=== PATIENT | male | born 1955 | race Hispanic/Latino ===

== ENCOUNTER 2018-01-02 09:59 | Emergency (ER) | payer OTHER ==
[2018-01-02 10:04] VITALS: BMI 31.1
--- NOTE | 2018-01-02 10:29 | ED PDOC ---
Lower Extremity Pain/Injury Time Seen by Provider: 01/02/18 10:10 Chief Complaint (Nursing): Lower Extremity Problem/Injury Chief Complaint (Provider): Left leg swelling History Per: Patient History/Exam Limitations: no limitations Onset/Duration Of Symptoms: Days, Persistent Current Symptoms Are (Timing): Still Present Additional History Per: Patient Additional Complaint(s): 62yo male, history of hypertension, pre-diabetes, comes to ER reporting swelling to his left lower extremity, x 2 weeks. 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 Patient reports some tingling in his left lower extremity but denies any weakness or numbness. He also denies any trauma/injury to the left leg, chest pain, or shortness of breath. Patient denies any blood clots in the past and denies any family history of blood clots. He has no additional complaints. PMD: None Against Medical Advice - AMA Patient Left Against Medical Advice: The patient declines admission to the hospital and wishes to leave the Emergency Department. This action is against my medical advice. This decision was made with informed refusal. The patient was told that admission to the hospital is necessary. Explanation of the reasons why were discussed. The risks of leaving were explained to the patient and include, but are not limited to, worsening of known or currently unknown conditions, permanent disability and from undiagnosed or untreated conditions. The patient has the capacity to make this informed decision and understands my explanation of the current medical problem and risks of leaving. The patient voluntarily accepts these risks and signed an AMA form documenting our conversation. The patient was given the opportunity to ask questions and reconsider. The patient was encouraged to return to the Emergency Department at any time for further care. Past Medical History Reviewed: Historical Data, Nursing Documentation, Vital Signs Vital Signs: Last Vital Signs Temp 98.4 F 01/02/18 10:03 Pulse 80 01/02/18 10:03 Resp 16 01/02/18 10:03 BP 169/92 H 01/02/18 10:03 Pulse Ox 97 01/02/18 10:03 - Medical History PMH: HTN - Surgical History Surgical History: No Surg Hx - Family History Family History: States: No Known Family Hx - Social History Current smoker - smoking cessation education provided: No Alcohol: None Drugs: Cannabis - Home Medications Home Medications: Ambulatory Orders Medication Instructions Recorded RX: No Known Home Med 01/02/18 - Allergies Allergies/Adverse Reactions: Allergies Allergy/AdvReac Type Severity Reaction Status Date / Time No Known Allergies Allergy Verified 01/02/18 10:10 Review of Systems ROS Statement: Except As Marked, All Systems Reviewed And Found Negative Constitutional: Negative for: Fever, Chills Cardiovascular: Negative for: Chest Pain Respiratory: Negative for: Shortness of Breath Musculoskeletal: Positive for: Other (left lower leg swelling). Negative for: Leg Pain Neurological: Negative for: Weakness, Numbness Physical Exam - Reviewed Nursing Documentation Reviewed: Yes Vital Signs Reviewed: Yes - Physical Exam Appears: Positive for: Non-toxic, No Acute Distress Head Exam: Positive for: ATRAUMATIC, NORMAL INSPECTION, NORMOCEPHALIC Skin: Positive for: Normal Color, Warm Eye Exam: Positive for: Normal appearance Neck: Positive for: Supple Cardiovascular/Chest: Positive for: Regular Rate, Rhythm Respiratory: Positive for: Normal Breath Sounds Pulses-Dorsalis Pedis (L): 2+ Pulses-Post. Tibialis (L): 2+ Extremity: Positive for: Normal ROM (FROM left lower extremity), Pedal Edema (non-pitting edema noted to left lower extremity; mild venous stasis changes noted), Capillary Refill (< 2 seconds), Other (venous dilation noted to left lower extremity; no warmth, or erythema noted. Calf is soft.). Negative for: Calf Tenderness, Deformity Neurologic/Psych: Positive for: Alert, Oriented. Negative for: Motor/Sensory Deficits - Laboratory Results Result Diagrams: 01/02/18 10:30 01/02/18 10:30 - ECG O2 Sat by Pulse Oximetry: 97 (RA) Pulse Ox Interpretation: Normal Medical Decision Making Medical Decision Making: Impression: Left lower leg swelling Differential: R/o DVT Plan: * Labs * US Doppler LLE Time: 12:06 Extremity US FINDINGS: 2-D, color and duplex Doppler analysis of the lower extremity venous circulation using routine protocol from the femoral veins through the popliteal veins. Venous compressibility: Normal. Flow and augmentation patterns: Normal. Visualized veins upper third of calf demonstrate the thrombus and noncompressibility consistent with DVT. The distal aspect of the posterior tibial vein exhibits noncompressible thrombus on as well Mcarthur cyst: None. IMPRESSION: There is evidence of noncompressive occlusive DVT within the mid posterior tibial vein.. See above discussion for additional details Time: 13:25 -discussed results of DVT study with patient, recommend admission to hospital for treatment as well as training for DVT injection, appropriate follow up arrangements discussed since patient has no PMD and no insurance, patient r efuses to stay and wants to leave AMA but will return within 24 hours for possible admission Scribe Attestation: Documented by Cassidy Crowell, acting as a scribe for Belgica Sierra MD Provider Scribe Attestation: All medical record entries made by the Scribe were at my direction and personally dictated by me. I have reviewed the chart and agree that the record accurately reflects my personal performance of the history, physical exam, medical decision making, and the department course for this patient. I have also personally directed, reviewed, and agree with the discharge instructions and disposition. Disposition - Clinical Impression Clinical Impression: Left leg DVT, Left against medical advice - Disposition Referrals: [facility] [Outside] [facility] [Outside] Disposition Time: 14:00 Condition: GOOD Additional Instructions: Return with in 24 hours for further treatment and admission. GABI PRUETT, thank you for letting us take care of you today. Your provider was Belgica Sierra MD and you were treated for LEFT CALF PAIN & SWELLING LT ANKLE. The emergency medical care you received today was directed at your acute symptoms. If you were prescribed any medication, please fill it and take as directed. It may take several days for your symptoms to resolve. Return to the Emergency Department if your symptoms worsen, do not improve, or if you have any other problems. Please contact your doctor or call one of the physicians/clinics you have been referred to that are listed on the Patient Visit Information form that is included in your discharge packet. Bring any paperwork you were given at discharge with you along with any medications you are taking to your follow up visit. Our treatment cannot replace ongoing medical care by a primary care provider outside of the emergency department. [facility]. If you had an X-Ray or CT scan: A Radiologist will review the ED reading if any change in treatment is needed we will contact you. If you had a blood, urine, or wound culture: It will take several days for the results, if any change in treatment is needed we will contact you. If you had an STI test: It will take 48 hours for the results. Please call after 1 week if you have not heard back. Instructions: Deep Vein Thrombosis (Blood Clots in the Legs), Leaving Against Medical Advice Forms: [facility] (Senegalese)
[2018-01-02 10:47] LABS: BASO % 1.1 % (0.0-2.0); EOS # 0.1 K/uL (0.0-0.7); EOS % 2.9 % (0.0-4.0); HEMOGLOBIN 14.1 g/dL (12.0-18.0); LYMPH # 1.2 K/uL (1.0-4.3); LYMPH % 28.6 % (20.0-40.0); MEAN CELL VOLUME 85.2 fl (80.0-94.0); MEAN CORPUSCULAR HEMOGLOBIN 28.3 pg (27.0-31.0); MEAN CORPUSCULAR HGB CONC 33.2 g/dL (33.0-37.0); MEAN PLATELET VOLUME 9.3 fl (7.2-11.7); MONO # 0.4 K/uL (0.0-0.8); NEUT # 2.4 K/uL (1.8-7.0); NEUT % 57.4 % (50.0-75.0); RBC 5.01 Mil/uL (4.40-5.90); RED CELL DISTRIBUTION WIDTH 13.5 % (11.5-14.5); WHITE BLOOD COUNT 4.1 K/uL (4.8-10.8)
[2018-01-02 11:12] LABS: BLOOD UREA NITROGEN 18 mg/dl (9-20); CALCIUM 8.9 mg/dL (8.4-10.2); GFR NON-AFRICAN AMERICAN 56
[2018-01-02 11:13] LABS: PROTHROMBIN TIME 11.4 Seconds (9.8-13.1)
[2018-01-02 11:16] LABS: PARTIAL THROMBOPLASTIN TIME 29.2 Seconds (25.6-37.1)
--- NOTE | 2018-01-02 12:10 | US ---
Date of service: 01/02/2018 HISTORY: lower left leg swelling. PRIORS: None. FINDINGS: 2-D, color and duplex Doppler analysis of the lower extremity venous circulation using routine protocol from the femoral veins through the popliteal veins. Venous compressibility: Normal. Flow and augmentation patterns: Normal. Visualized veins upper third of calf demonstrate the thrombus and noncompressibility consistent with DVT. The distal aspect of the posterior tibial vein exhibits noncompressible thrombus on as well Mcarthur cyst: None. IMPRESSION: There is evidence of noncompressive occlusive DVT within the mid posterior tibial vein.. See above discussion for additional details
[2018-01-02] MEDS ORDERED: Enoxaparin 100 mg Syringe SC ONE (12:40)
[2018-01-02] MEDS ORDERED: Enoxaparin 150 mg Syringe SC STA (13:22)
[2018-01-02 13:29] VITALS: RESP 19
[2018-01-02 14:36] VITALS: TEMP 97
[2018-01-02 14:37] VITALS: BP 147/76; PULSE 75
[2018-01-02 15:08] VITALS: O2SAT 97
== END 2018-01-02 14:38 | disposition left against medical advice (07) ==
LOC: H.ER 09:59
DX: I82.402 Acute embolism and thrombosis of unspecified deep veins of left lower extremity (principal); I10 Essential (primary) hypertension
CPT/HCPCS: 80048; 85025; 85610; 85730; 93971; 96372; 99285; J1650

== ENCOUNTER 2018-01-03 16:00 | Observation (INO) | payer OTHER ==
[2018-01-03 16:01] VITALS: BMI 31.1
[2018-01-03] MEDS ORDERED: Enoxaparin 100 mg Syringe SC ONE (17:15)
--- NOTE | 2018-01-03 17:46 | RAD ---
Date of service: 01/03/2018 HISTORY: clearance COMPARISON: No prior. FINDINGS: LUNGS: No active pulmonary disease. PLEURA: No significant pleural effusion identified, no pneumothorax apparent. CARDIOVASCULAR: No aortic atherosclerotic calcification present OSSEOUS STRUCTURES: No significant abnormalities. VISUALIZED UPPER ABDOMEN: Normal. OTHER FINDINGS: None. IMPRESSION: No active disease.
--- NOTE | 2018-01-03 18:17 | ED PDOC ---
Lower Extremity Pain/Injury Time Seen by Provider: 01/03/18 16:44 Chief Complaint (Nursing): Lower Extremity Problem/Injury Chief Complaint (Provider): Lower Extremity Problem/Injury History Per: Patient History/Exam Limitations: no limitations Onset/Duration Of Symptoms: Days, Waxing/Waning Additional Complaint(s): 62 y/o male states he was seen and evaluated here yesterday and diagnosed with a DVT in the left leg. Patient ended up signing out AMA and returned today as he was told he would need lovanox. Patient does report swelling has decreased. Denies chest pain, shortness of breath and palpitations. PMD: No PMD (Patient states he does not have insurance). Past Medical History Reviewed: Historical Data, Nursing Documentation, Vital Signs Vital Signs: Last Vital Signs Temp 98.7 F 01/03/18 16:29 Pulse 91 H 01/03/18 16:29 Resp 16 01/03/18 16:29 BP 131/76 01/03/18 16:29 Pulse Ox 96 01/03/18 16:29 - Medical History PMH: HTN - Surgical History Surgical History: No Surg Hx - Family History Family History: States: No Known Family Hx - Home Medications Home Medications: Ambulatory Orders Medication Instructions Recorded No Known Home Med 01/02/18 - Allergies Allergies/Adverse Reactions: Allergies Allergy/AdvReac Type Severity Reaction Status Date / Time No Known Allergies Allergy Verified 01/02/18 10:10 Review of Systems ROS Statement: Except As Marked, All Systems Reviewed And Found Negative Musculoskeletal: Positive for: Leg Pain (Left Leg DVT) Physical Exam - Reviewed Nursing Documentation Reviewed: Yes Vital Signs Reviewed: Yes - Physical Exam Appears: Positive for: No Acute Distress Head Exam: Positive for: ATRAUMATIC, NORMOCEPHALIC Skin: Positive for: Normal Color, Warm, Dry Eye Exam: Positive for: Normal appearance, EOMI, PERRL Neck: Positive for: Normal, Painless ROM Cardiovascular/Chest: Positive for: Regular Rate, Rhythm. Negative for: Murmur Respiratory: Positive for: Normal Breath Sounds. Negative for: Respiratory Distress Pulses-Dorsalis Pedis (L): 2+ Pulses-Dorsalis Pedis (R): 2+ Gastrointestinal/Abdominal: Positive for: Normal Exam, Soft. Negative for: Tenderness Back: Positive for: Normal Inspection. Negative for: L CVA Tenderness, R CVA Tenderness, Vertebral Tenderness Extremity: Positive for: Normal ROM, Calf Tenderness (left leg calf tenderness and edema) Neurologic/Psych: Positive for: Alert, Oriented. Negative for: Motor/Sensory Deficits - Laboratory Results Result Diagrams: 01/03/18 18:09 01/03/18 18:09 - ECG ECG: Positive for: Interpreted By Me ECG Rhythm: Positive for: Sinus Rhythm. Negative for: ST/T Changes Rate: 67 O2 Sat by Pulse Oximetry: 96 (RA) Pulse Ox Interpretation: Normal - Progress ED Course And Treament: Case d/w Dr. Toavr and arrangements made for admission. Medical Decision Making Medical Decision Making: Time: 1808 Plan: -- CT Angio Chest PE Protocol -- EKG -- CMP -- CBC with Differentials -- CXR Portable -- Lovenox 100 mg SC -- Live Study Manager -- IV Insertion -- Discussed with Dr. Solano who recommends admission and CT of the Chest. -- Patient informed of plan and agrees that he requires admission. Scribe Attestation: Documented by Suad Chung, acting as a scribe for Jean Claude Byrd PA-C. Provider Scribe Attestation: All medical record entries made by the Scribe were at my direction and personally dictated by me. I have reviewed the chart and agree that the record accurately reflects my personal performance of the history, physical exam, medical decision making, and the department course for this patient. I have also personally directed, reviewed, and agree with the discharge instructions and disposition. Disposition - Clinical Impression Clinical Impression: Left leg DVT - Patient ED Disposition Is Patient to be Admitted: Yes - Disposition Disposition Time: 19:40 Condition: STABLE
[2018-01-03 18:27] LABS: ALB/GLOB RATIO 1.1 (1.0-2.1); ALBUMIN 3.5 g/dL (3.5-5.0); ALT/SGPT 22 U/L (21-72); AST/SGOT 17 U/L (17-59); BASO % 0.8 % (0.0-2.0); BLOOD UREA NITROGEN 23 mg/dl (9-20); CALCIUM 8.8 mg/dL (8.4-10.2); EOS # 0.1 K/uL (0.0-0.7); EOS % 1.8 % (0.0-4.0); GFR NON-AFRICAN AMERICAN 51; HEMOGLOBIN 13.6 g/dL (12.0-18.0); LYMPH # 1.4 K/uL (1.0-4.3); LYMPH % 30.3 % (20.0-40.0); MEAN CELL VOLUME 85.3 fl (80.0-94.0); MEAN CORPUSCULAR HEMOGLOBIN 28.5 pg (27.0-31.0); MEAN CORPUSCULAR HGB CONC 33.4 g/dL (33.0-37.0); MEAN PLATELET VOLUME 9.4 fl (7.2-11.7); MONO # 0.5 K/uL (0.0-0.8); MONO % 9.9 % (0.0-10.0); NEUT # 2.7 K/uL (1.8-7.0); NEUT % 57.2 % (50.0-75.0); NRBC % 0.1 % (0.0-0.0); RBC 4.78 Mil/uL (4.40-5.90); RED CELL DISTRIBUTION WIDTH 13.4 % (11.5-14.5); WHITE BLOOD COUNT 4.8 K/uL (4.8-10.8)
[2018-01-03] MEDS ORDERED: Iodixanol 320 MG/ML 100 ML BOTTLE IV ONE (18:38)
[2018-01-03] MEDS ORDERED: Sodium Chloride 0.9% 50 ML IV ONE (18:39)
[2018-01-03 19:23] LABS: PROTHROMBIN TIME 11.8 Seconds (9.8-13.1)
[2018-01-03 19:26] LABS: PARTIAL THROMBOPLASTIN TIME 30.3 Seconds (25.6-37.1)
--- NOTE | 2018-01-03 21:25 | CP.PCM.HP ---
History of Present Illness - History of Present Illness History of Present Illness: 62 year old male presented with one week history of left lower extremity swelling and pain that prompted ED visit. 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 He denies any chest pain, shortness of breath, dyspnea, no numbness or tingling in lower extremity. No trauma to leg. No personal or family history of coagulopathy or DVT/PE. He otherwise feels well. PMD: non provided PMH: HTN, seasonal allergies Medications: none AllergieS: NKDA Social: nonsmoker, no etoh use currently, no illicit drugs Surgical hx: tonsillectomy Family history noncontributory Present on Admission - Present on Admission Any Indicators Present on Admission: No Review of Systems - Constitutional Constitutional: absent: Chills, Fever - EENT Eyes: absent: Change in Vision Ears: absent: Ear Pain Nose/Mouth/Throat: absent: Nasal Congestion, Nasal Discharge - Cardiovascular Cardiovascular: absent: Chest Pain, Chest Pain at Rest, Diaphoresis, Dyspnea, Dyspnea on Exertion, Rapid Heart Rate - Respiratory Respiratory: absent: Cough, Dyspnea, Dyspnea on Exertion - Gastrointestinal Gastrointestinal: absent: Abdominal Pain, Diarrhea, Nausea, Vomiting - Genitourinary Genitourinary: absent: Difficulty Urinating, Dysuria - Integumentary Integumentary: absent: Rash Past Patient History - Past Social History Smoking Status: Never Smoked Alcohol: None Drugs: Denies - CARDIAC Hx Hypertension: Yes - PSYCHIATRIC Hx Substance Use: No - SURGICAL HISTORY Hx Surgeries: No - ANESTHESIA Hx Anesthesia: No Meds Allergies/Adverse Reactions: Allergies Allergy/AdvReac Type Severity Reaction Status Date / Time No Known Allergies Allergy Verified 01/02/18 10:10 Physical Exam - Constitutional Appears: Well, Non-toxic, No Acute Distress - Head Exam Head Exam: ATRAUMATIC, NORMAL INSPECTION, NORMOCEPHALIC - Eye Exam Eye Exam: EOMI, Normal appearance, PERRL - Respiratory Exam Respiratory Exam: Clear to Auscultation Bilateral, NORMAL BREATHING PATTERN. absent: Rales, Rhonchi, Wheezes - Cardiovascular Exam Cardiovascular Exam: REGULAR RHYTHM, +S1, +S2 - GI/Abdominal Exam GI & Abdominal Exam: Normal Bowel Sounds, Soft. absent: Distended, Guarding, Tenderness - Extremities Exam Additional comments: right lower extremity: unremarkable, left lower extremity edema, nonpitting, calf tenderness, +hommans - Neurological Exam Neurological exam: Alert, CN II-XII Intact, Oriented x3 - Psychiatric Exam Psychiatric exam: Normal Affect, Normal Mood - Skin Skin Exam: Dry, Intact, Normal Color, Warm Results - Vital Signs Recent Vital Signs: Last Vital Signs Temp 98 F 01/03/18 19:27 Pulse 67 01/03/18 20:19 Resp 20 01/03/18 19:27 BP 155/93 H 01/03/18 19:27 Pulse Ox 96 01/03/18 20:19 - Labs Result Diagrams: 01/03/18 18:09 01/03/18 18:09 Labs: Laboratory Results - last 24 hr 01/03/18 01/03/18 01/03/18 18:09 18:09 19:14 WBC 4.8 RBC 4.78 Hgb 13.6 Hct 40.8 MCV 85.3 MCH 28.5 MCHC 33.4 RDW 13.4 Plt Count 170 MPV 9.4 Neut % (Auto) 57.2 Lymph % (Auto) 30.3 [place] % (Auto) 9.9 Eos % (Auto) 1.8 Baso % (Auto) 0.8 Neut # (Auto) 2.7 Lymph # (Auto) 1.4 [place] # (Auto) 0.5 Eos # (Auto) 0.1 Baso # (Auto) 0.0 PT 11.8 INR 1.0 APTT 30.3 Sodium 140 Potassium 4.2 Chloride 107 Carbon Dioxide 30 Anion Gap 7 L BUN 23 H Creatinine 1.4 Est GFR ( Amer) > 60 Est GFR (Non-Af Amer) 51 Random Glucose 100 Calcium 8.8 Total Bilirubin 0.3 AST 17 ALT 22 Alkaline Phosphatase 40 Total Protein 6.6 Albumin 3.5 Globulin 3.1 Albumin/Globulin Ratio 1.1 Assessment & Plan - Assessment and Plan (Free Text) Assessment: 62 year old male with hx of HTN admitted with left lower extremity DVT. 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 EKG reviewed, NSR; CTA done in ED, final report pending BP controlled off medications. #DVT of mid posterior tibial vein of left lower extremity #HTN #Obesity -continue therapeutic lovenox 100mg q12 -monitor BP -start coumadin 5 mg -monitor coags Patient seen and examined with Dr. Tovar
--- NOTE | 2018-01-04 06:54 | CARD ---
APPROVED REPORT Date of service: 01/03/2018 EKG Measurement Heart [id number] <Conclusion> Normal sinus rhythm Normal ECG
[2018-01-04 07:29] LABS: INR 1.1; PROTHROMBIN TIME 12.3 Seconds (9.8-13.1)
[2018-01-04] MEDS ORDERED: Enoxaparin 100 mg Syringe SC SCH (09:00)
[2018-01-04 09:20] VITALS: RESP 18; O2SAT 97
--- NOTE | 2018-01-04 10:01 | CP.PCM.DIS ---
<Lindsay Wei - Last Filed: 01/04/18 11:28> Provider - Provider Date of Admission: 01/03/18 19:47 Attending physician: Socorro Tovar MD Primary care physician: none provided Consults: none Time Spent in preparation of Discharge (in minutes): 30 Hospital Course - Lab Results Lab Results: Most Recent Lab Values WBC 4.8 K/uL (4.8-10.8) 01/03/18 18:09 RBC 4.78 Mil/uL (4.40-5.90) 01/03/18 18:09 Hgb 13.6 g/dL (12.0-18.0) 01/03/18 18:09 Hct 40.8 % (35.0-51.0) 01/03/18 18:09 MCV 85.3 fl (80.0-94.0) 01/03/18 18:09 MCH 28.5 pg (27.0-31.0) 01/03/18 18:09 MCHC 33.4 g/dL (33.0-37.0) 01/03/18 18:09 RDW 13.4 % (11.5-14.5) 01/03/18 18:09 Plt Count 170 K/uL (130-400) 01/03/18 18:09 MPV 9.4 fl (7.2-11.7) 01/03/18 18:09 Neut % (Auto) 57.2 % (50.0-75.0) 01/03/18 18:09 Lymph % (Auto) 30.3 % (20.0-40.0) 01/03/18 18:09 [place] % (Auto) 9.9 % (0.0-10.0) 01/03/18 18:09 Eos % (Auto) 1.8 % (0.0-4.0) 01/03/18 18:09 Baso % (Auto) 0.8 % (0.0-2.0) 01/03/18 18:09 Neut # (Auto) 2.7 K/uL (1.8-7.0) 01/03/18 18:09 Lymph # (Auto) 1.4 K/uL (1.0-4.3) 01/03/18 18:09 [place] # (Auto) 0.5 K/uL (0.0-0.8) 01/03/18 18:09 Eos # (Auto) 0.1 K/uL (0.0-0.7) 01/03/18 18:09 Baso # (Auto) 0.0 K/uL (0.0-0.2) 01/03/18 18:09 PT 12.3 Seconds (9.8-13.1) 01/04/18 06:51 INR 1.1 01/04/18 06:51 APTT 30.3 Seconds (25.6-37.1) 01/03/18 19:14 Sodium 140 mmol/l (132-148) 01/03/18 18:09 Potassium 4.2 MMOL/L (3.6-5.0) 01/03/18 18:09 Chloride 107 mmol/L (98-107) 01/03/18 18:09 Carbon Dioxide 30 mmol/L (22-30) 01/03/18 18:09 Anion Gap 7 (10-20) L 01/03/18 18:09 BUN 23 mg/dl (9-20) H 01/03/18 18:09 Creatinine 1.4 mg/dl (0.8-1.5) 01/03/18 18:09 Est GFR ( Amer) > 60 01/03/18 18:09 Est GFR (Non-Af Amer) 51 01/03/18 18:09 Random Glucose 100 mg/dL (75-110) 01/03/18 18:09 Calcium 8.8 mg/dL (8.4-10.2) 01/03/18 18:09 Total Bilirubin 0.3 mg/dl (0.2-1.3) 01/03/18 18:09 AST 17 U/L (17-59) 01/03/18 18:09 ALT 22 U/L (21-72) 01/03/18 18:09 Alkaline Phosphatase 40 U/L (38-126) 01/03/18 18:09 Total Protein 6.6 G/DL (6.3-8.2) 01/03/18 18:09 Albumin 3.5 g/dL (3.5-5.0) 01/03/18 18:09 Globulin 3.1 gm/dL (2.2-3.9) 01/03/18 18:09 Albumin/Globulin Ratio 1.1 (1.0-2.1) 01/03/18 18:09 - Hospital Course Hospital Course: 62 year old male presented with one week history of left lower extremity swelling and pain that prompted ED visit. 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 He denies any chest pain, shortness of breath, dyspnea, no numbness or tingling in lower extremity. No trauma to leg. No personal or family history of coagulopathy or DVT/PE. Patient was diagnosed with a Left leg DVT via Left Lower extremity ultrasound. Patient to start Eliquis 1) Left Lower Extremity Deep Venous Thrombosis - Start Eliquis, patient provided with instructions - 10 mg BID for 7 days and 5 mg BID 23 days for the first 1 month - Patient to continue to take medication for 3 months - Patient to follow up in [facility] within the week - Patient educated on prevention for further DVTs/PEs 2) HTN - Patient to be started on Losartan 50 mg PO DAILY - Date & Time of H&P Date of H&P: 01/04/18 Time of H&P: 10:11 Discharge Exam - Head Exam Head Exam: ATRAUMATIC, NORMAL INSPECTION, NORMOCEPHALIC - Eye Exam Eye Exam: Normal appearance - ENT Exam ENT Exam: Mucous Membranes Moist - Neck Exam Neck exam: Full Rom - Respiratory Exam Respiratory Exam: Clear to PA & Lateral, NORMAL BREATHING PATTERN. absent: Rales, Rhonchi, Wheezes - Cardiovascular Exam Cardiovascular Exam: REGULAR RHYTHM, RRR, +S1, +S2. absent: JVD - GI/Abdominal Exam GI & Abdominal Exam: Normal Bowel Sounds, Soft. absent: Distended, Firm, Guarding, Tenderness - Extremities Exam Additional comments: right lower extremity: unremarkable, left lower extremity edema, nonpitting, calf tenderness, +homans - Neurological Exam Neurological exam: Alert, Oriented x3 - Psychiatric Exam Psychiatric exam: Normal Affect, Normal Mood - Skin Skin Exam: Normal Color Discharge Plan - Discharge Medications Prescriptions: Apixaban [Eliquis] 5 mg PO BID 30 Days #74 tablet Losartan [Cozaar] 50 mg PO DAILY #30 tab - Follow Up Plan Condition: STABLE Disposition: HOME/ ROUTINE Instructions: Pulmonary Embolism (DC), Deep Venous Thrombosis (DC) Additional Instructions: follow up appt. on wednesday01/11/18 at 11:00am with at the [address] [facility] [phone] Referrals: [facility] [place] [Outside] <Aga Escalona - Last Filed: 01/04/18 17:02> Provider - Provider Date of Admission: 01/03/18 19:47 Attending physician: Socorro Tovar MD Hospital Course - Lab Results Lab Results: Most Recent Lab Values WBC 4.8 K/uL (4.8-10.8) 01/03/18 18:09 RBC 4.78 Mil/uL (4.40-5.90) 01/03/18 18:09 Hgb 13.6 g/dL (12.0-18.0) 01/03/18 18:09 Hct 40.8 % (35.0-51.0) 01/03/18 18:09 MCV 85.3 fl (80.0-94.0) 01/03/18 18:09 MCH 28.5 pg (27.0-31.0) 01/03/18 18:09 MCHC 33.4 g/dL (33.0-37.0) 01/03/18 18:09 RDW 13.4 % (11.5-14.5) 01/03/18 18:09 Plt Count 170 K/uL (130-400) 01/03/18 18:09 MPV 9.4 fl (7.2-11.7) 01/03/18 18:09 Neut % (Auto) 57.2 % (50.0-75.0) 01/03/18 18:09 Lymph % (Auto) 30.3 % (20.0-40.0) 01/03/18 18:09 [place] % (Auto) 9.9 % (0.0-10.0) 01/03/18 18:09 Eos % (Auto) 1.8 % (0.0-4.0) 01/03/18 18:09 Baso % (Auto) 0.8 % (0.0-2.0) 01/03/18 18:09 Neut # (Auto) 2.7 K/uL (1.8-7.0) 01/03/18 18:09 Lymph # (Auto) 1.4 K/uL (1.0-4.3) 01/03/18 18:09 [place] # (Auto) 0.5 K/uL (0.0-0.8) 01/03/18 18:09 Eos # (Auto) 0.1 K/uL (0.0-0.7) 01/03/18 18:09 Baso # (Auto) 0.0 K/uL (0.0-0.2) 01/03/18 18:09 PT 12.3 Seconds (9.8-13.1) 01/04/18 06:51 INR 1.1 01/04/18 06:51 APTT 30.3 Seconds (25.6-37.1) 01/03/18 19:14 Sodium 140 mmol/l (132-148) 01/03/18 18:09 Potassium 4.2 MMOL/L (3.6-5.0) 01/03/18 18:09 Chloride 107 mmol/L (98-107) 01/03/18 18:09 Carbon Dioxide 30 mmol/L (22-30) 01/03/18 18:09 Anion Gap 7 (10-20) L 01/03/18 18:09 BUN 23 mg/dl (9-20) H 01/03/18 18:09 Creatinine 1.4 mg/dl (0.8-1.5) 01/03/18 18:09 Est GFR ( Amer) > 60 01/03/18 18:09 Est GFR (Non-Af Amer) 51 01/03/18 18:09 Random Glucose 100 mg/dL (75-110) 01/03/18 18:09 Calcium 8.8 mg/dL (8.4-10.2) 01/03/18 18:09 Total Bilirubin 0.3 mg/dl (0.2-1.3) 01/03/18 18:09 AST 17 U/L (17-59) 01/03/18 18:09 ALT 22 U/L (21-72) 01/03/18 18:09 Alkaline Phosphatase 40 U/L (38-126) 01/03/18 18:09 Total Protein 6.6 G/DL (6.3-8.2) 01/03/18 18:09 Albumin 3.5 g/dL (3.5-5.0) 01/03/18 18:09 Globulin 3.1 gm/dL (2.2-3.9) 01/03/18 18:09 Albumin/Globulin Ratio 1.1 (1.0-2.1) 01/03/18 18:09 Attending/Attestation - Attestation I have personally seen and examined this patient.: Yes I have fully participated in the care of the patient.: Yes I have reviewed all pertinent clinical information, including history, physical exam and plan: Yes Notes (Text): Provoked Left Lower Extremity DVT -CTA done ruled out PE - anticoagulation started with Lovenox , pt is high risk of having more DVT due to immobility - currently working as an [employer] - prefers to be on DOAC rather than Coumadin - will d/c home on Eliquis -Pt is stable, denies pain at present
[2018-01-04] MEDS ORDERED: Influenza Vaccine 60 MCG/0.5 ML SYR (3 yr & up) IM ONE (11:15)
[2018-01-04] MEDS ORDERED: Pneumococcal 23-Valent Vaccine IM ONE (11:16)
--- NOTE | 2018-01-04 11:41 | CT ---
Date of service: 01/03/2018 PROCEDURE: CT Chest with contrast (Pulmonary Angiogram) HISTORY: DVT COMPARISON: Plain radiograph from 01/03/2018. TECHNIQUE: Axial computed tomography images were obtained of the chest in the pulmonary arterial phase of enhancement. Coronal and sagittal reformatted images were created and reviewed. Intravenous contrast dose: 95 mL Visipaque 320 Radiation dose: Total exam DLP = 397.66 mGy-cm. This CT exam was performed using one or more of the following dose reduction techniques: Automated exposure control, adjustment of the mA and/or kV according to patient size, and/or use of iterative reconstruction technique. FINDINGS: PULMONARY ARTERIES: No filling defects in the pulmonary arteries to suggest acute pulmonary embolism. AORTA: No acute findings. No thoracic aortic aneurysm. No aortic atherosclerotic calcification or mural plaque present. There is an aberrant right subclavian artery. LUNGS: The lungs are well inflated. No nodule, mass or pulmonary consolidation. There is minimal subsegmental atelectasis in the inferior lingula and lung bases. PLEURAL SPACES: No effusion or pneumothorax. HEART: The heart is normal in size. No pericardial effusion. LYMPH NODES: No pathologic hilar or mediastinal lymphadenopathy. BONES, CHEST WALL: Within normal limits for the patient's age. No fracture or destructive lesion OTHER FINDINGS: Both adrenal glands are normal in size. There are several variable sized low-density lesions scattered in the liver, the largest in the left anterior hepatic lobe measures 1.6 x 1.4 cm. The majority of these demonstrate fluid density. IMPRESSION: No CT evidence for acute pulmonary embolism. Aberrant right subclavian artery. No focal consolidation, pleural effusion or pneumothorax. Multiple fluid density variable sized lesions in the liver, the largest in the left hepatic lobe measures 1.6 x 1.4 cm. This may represent simple cysts or hemangiomas. Correlation with right upper quadrant ultrasound is recommended for definitive evaluation.
[2018-01-04 11:57] VITALS: BP 144/89; PULSE 73; TEMP 98.3
== END 2018-01-04 14:10 | disposition home or self-care (01) ==
LOC: H.ER 16:00 → H.ERHOLD 19:47 → H.TEL 01-04 09:00
PROVIDERS: ADMIT Internal Medicine; ATTEND Internal Medicine
DX: I82.442 Acute embolism and thrombosis of left tibial vein (principal); Z79.01 Long term (current) use of anticoagulants; Z79.899 Other long term (current) drug therapy; J30.2 Other seasonal allergic rhinitis; E66.9 Obesity, unspecified; Z68.31 Body mass index [BMI] 31.0-31.9, adult; I10 Essential (primary) hypertension
CPT/HCPCS: 71045; 71275; 80053; 85025; 85610; 85730; 90471; 90674; 90732; 93005; 96372; 99285; G0378; J1650; Q9967